=== PATIENT | male | born 1975 | race Caucasian/White ===

== ENCOUNTER 2021-06-16 15:43 | Emergency (ER) | payer OTHER ==
[~2021-06-16] VITALS: Ht 182 cm; Wt 136.0 kg
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
[2021-06-16 16:14] LABS: HEMATOCRIT 47 % (40-54); HEMOGLOBIN 15.8 g/dL (13.3-17.7); MEAN CORPUSCULAR HEMOGLOBIN 30 pg (25-34); MEAN CORPUSCULAR HGB CONC 34 g/dL (32-36); MEAN CORPUSCULAR VOLUME 87 fL (80-99); MEAN PLATELET VOLUME 8.6 fL (9.0-12.2); PLATELET COUNT 273 10^3/uL (130-400); WHITE BLOOD COUNT 8.2 10^3/uL (4.3-11.0)
[2021-06-16] MEDS ORDERED: NS 100 ML (IVPB) BAG IV ONE (16:30)
[2021-06-16] MEDS ORDERED: HOLD METFORMIN - RECEIVED CONTRAST 20 ML VIAL IV SCH (16:30)
[2021-06-16] MEDS ORDERED: IOHEXOL 350 MG/ML 100 ML (OMNIPAQUE 350) VIAL IV ONE (16:30)
[2021-06-16 16:38] LABS: ALANINE AMINOTRANSFERASE 43 U/L (0-55); ALBUMIN 4.4 GM/DL (3.2-4.5); ALKALINE PHOSPHATASE 68 U/L (40-136); BILIRUBIN,DIRECT 0.2 MG/DL (0.0-0.3); BILIRUBIN,INDIRECT 0.4 MG/DL; BILIRUBIN,TOTAL 0.6 MG/DL (0.1-1.0); BUN/CREATININE RATIO 15; CALCIUM 9.3 MG/DL (8.5-10.1); CARBON DIOXIDE 22 MMOL/L (21-32); CHLORIDE 103 MMOL/L (98-107); CREATININE SERUM 0.95 MG/DL (0.60-1.30); GFR ESTIMATED > 60; GLUCOSE 104 MG/DL (70-105); SODIUM 138 MMOL/L (135-145); TOTAL PROTEIN 7.8 GM/DL (6.4-8.2)
--- NOTE | 2021-06-16 17:00 | Diagnostic Imaging Report ---
PROCEDURE: CT head and CT cervical spine without contrast. TECHNIQUE: Multiple contiguous axial images were obtained through the brain and cervical spine without the use of intravenous contrast. Sagittal and coronal reformations through the cervical spine were then performed. Auto Exposure Controls were utilized during the CT exam to meet ALARA standards for radiation dose reduction. INDICATION: Trauma. COMPARISON: None. FINDINGS: CT head: Ventricles normal in size, shape and position. There are chronic benign calcifications along the posterior falx. There is no extra-axial fluid collection or mass. No skull fracture. Paranasal sinuses and mastoids are clear. IMPRESSION: No acute intracranial abnormality. CT cervical spine: Alignment is normal. There is no subluxation or fracture. Moderate degenerative changes are seen throughout the disc spaces and facet joints. Soft tissues are grossly unremarkable. IMPRESSION: No traumatic malalignment or fracture. Dictated by: Dictated on workstation # [id number]
--- NOTE | 2021-06-16 17:09 | Diagnostic Imaging Report ---
PROCEDURE: CT chest, abdomen and pelvis with contrast. TECHNIQUE: Multiple contiguous axial images were obtained through the chest, abdomen, and pelvis after the administration of intravenous contrast. Auto Exposure Controls were utilized during the CT exam to meet ALARA standards for radiation dose reduction. INDICATION: Trauma. COMPARISON: None. FINDINGS: CT chest: The heart and mediastinal structures are grossly unremarkable. There is no vascular injury. No pericardial effusion is identified. The lungs are clear. No pneumothorax, pleural effusion or pulmonary contusion is identified. Visualized ribs, sternum and thoracic spine are intact. IMPRESSION: No acute trauma identified within the chest. CT abdomen/pelvis: Cholelithiasis is present. Solid organs, vascular structures and bowel are grossly normal. Urinary bladder is intact. The prostate is slightly enlarged. Lumbar spine, pelvis and hips are grossly unremarkable. There is a left lateral abdominal wall hernia. There is some bowel which is dissected between the oblique and transverse abdominis muscles. This entity appears chronic. There is no muscular hematoma. IMPRESSION: 1. Cholelithiasis. 2. No acute trauma within the abdomen or pelvis. Dictated by: Dictated on workstation # [id number]
[2021-06-16 17:10] LABS: BILIRUBIN,URINE NEGATIVE (NEGATIVE); CLARITY,URINE CLEAR; COLOR,URINE YELLOW; GLUCOSE, URINE (UA) NEGATIVE (NEGATIVE); KETONES,URINE NEGATIVE (NEGATIVE); LEUKOCYTE ESTERASE ,URINE NEGATIVE (NEGATIVE); NITRITE,URINE NEGATIVE (NEGATIVE); PH,URINE 6.5 (5-9); PROTEIN,URINE NEGATIVE (NEGATIVE)
[2021-06-16 17:28] LABS: BACTERIA,URINE NEGATIVE /HPF
[2021-06-16 17:38] LABS: AMPHETAMINE SCREEN, URINE POSITIVE (NEGATIVE); BARBITURATE SCREEN URINE NEGATIVE (NEGATIVE); BENZODIAZEPINES SCREEN URINE NEGATIVE (NEGATIVE); CANNABINOID SCREEN, URINE NEGATIVE (NEGATIVE); COCAINE SCREEN URINE NEGATIVE (NEGATIVE); METHADONE STAT NEGATIVE (NEGATIVE); METHAMPHETAMINE SCREEN URINE S POSITIVE (NEGATIVE); OPIATE SCREEN URINE NEGATIVE (NEGATIVE); OXYCODONE STAT NEGATIVE (NEGATIVE); PROPOXYPHENE STAT NEGATIVE (NEGATIVE); TRICYCLIC ANTIDEPRESSANTS SCRE NEGATIVE (NEGATIVE)
[2021-06-16 17:44] VITALS: BP 126/96
== END 2021-06-16 17:44 | disposition home or self-care (01) ==
LOC: ER 15:45
DX: Z04.1 Encounter for examination and observation following transport accident (principal); E66.9 Obesity, unspecified
CPT/HCPCS: 36415; 70450; 71260; 72125; 74177; 80048; 80076; 80306; 80320; 81000; 85027